=== PATIENT | female | born 1960 | race Caucasian/White ===

== ENCOUNTER 2016-07-09 15:24 | Emergency (ER) | payer OTHER ==
[~2016-07-09] VITALS: Ht 157.5 cm; Wt 81.5 kg
[2016-07-09 15:42] LABS: GLUCOSE,POINT OF CARE 209 MG/DL (70-110)
[2016-07-09] MEDS ORDERED: ATOR20TA86 PO (15:44)
[2016-07-09] MEDS ORDERED: GABA-529 PO (15:44)
[2016-07-09] MEDS ORDERED: OMEP20 PO (15:44)
[2016-07-09] MEDS ORDERED: BUSP5TAB20 PO (15:44)
[2016-07-09 17:12] VITALS: BP 140/72
== END 2016-07-09 18:14 | disposition home or self-care (01) ==
LOC: EMS 15:28
DX: S50.862A Insect bite (nonvenomous) of left forearm, initial encounter (principal); S50.861A Insect bite (nonvenomous) of right forearm, initial encounter; E11.9 Type 2 diabetes mellitus without complications; F32.9 Major depressive disorder, single episode, unspecified; F17.210 Nicotine dependence, cigarettes, uncomplicated; W57.XXXA Bitten or stung by nonvenomous insect and other nonvenomous arthropods, initial encounter; Y93.89 Activity, other specified; Y92.89 Other specified places as the place of occurrence of the external cause; Y99.8 Other external cause status; Z88.0 Allergy status to penicillin
CPT/HCPCS: 82962; 99283; 99406